=== PATIENT | female | born 1965 | race Caucasian/White ===

== ENCOUNTER 2024-10-13 07:39 | Day surgery (SDC) | payer MEDICARE, OTHER ==
[~2024-10-13] VITALS: Ht 170.2 cm; Wt 79.5 kg
[~2024-10-13 07:39] MED LIST: ALPR1TAB7 PO; AMLO10TA PO; ASCO500C18 PO; CHOL10002 PO; CYAN100019 PO; FERR-86 PO; FLEC50TA PO; HYDR-3565 PO; HYDR-3972 PO; MAGN500T2 PO; METH-360 PO; METO25TA6 PO; SERT25TA PO; WARF4TAB69 PO
[2024-10-13 08:03] VITALS: BP 175/86; PULSE 63; RESP 10
[2024-10-13] MEDS ORDERED: simethicone 40mg/0.6ml oral drops 30ml ONE (08:52)
[2024-10-13] MEDS ORDERED: midazolam 1 mg/ML 2ml injection ONE (09:00)
[2024-10-13] MEDS ORDERED: fentaNYL/PF 50MCG/1 ML 2ML syringe ONE (09:04)
[2024-10-13] MEDS ORDERED: propofol inj 20 ML IV ONE (09:14)
[2024-10-13] MEDS ORDERED: LIDOcaine 2% (20mg/ml) 5ml vial ONE (09:15)
[2024-10-13 09:35] VITALS: BP 134/70; PULSE 61; RESP 13; O2SAT 100
[2024-10-13 09:45] VITALS: BP 126/72; PULSE 61; RESP 12; O2SAT 100
[2024-10-13 09:55] VITALS: BP 151/76; PULSE 60; RESP 14; O2SAT 97
[2024-10-13 10:05] VITALS: BP 152/72; PULSE 61; RESP 15; O2SAT 97
== END 2024-10-13 10:31 | disposition home or self-care (01) ==
LOC: GI LAB 07:39
PROVIDERS: ATTEND Internal Medicine Gastroenterology
DX: D50.9 Iron deficiency anemia, unspecified (principal); K31.89 Other diseases of stomach and duodenum; J45.909 Unspecified asthma, uncomplicated; I12.9 Hypertensive chronic kidney disease with stage 1 through stage 4 chronic kidney disease, or unspecified chronic kidney disease; N18.9 Chronic kidney disease, unspecified; Z88.8 Allergy status to other drugs, medicaments and biological substances; Z91.09 Other allergy status, other than to drugs and biological substances; Z86.0100 Personal history of colon polyps, unspecified; Z98.84 Bariatric surgery status
CPT/HCPCS: 43239; 45378; A4620; J2003; J2250; J2704; J3010; J7030; Z7512; 88305